=== PATIENT | female | born 1980 | race Two or more races ===

== ENCOUNTER 2018-05-31 11:57 | Outpatient (CLI) ==
--- NOTE | 2018-05-31 13:45 | CT ---
EXAM: CT of the head with and without contrast History: Headache. Technique: Multiplanar CT images through the head were obtained with and without the administration of IV contrast Findings: The visualized paranasal sinuses and mastoid air cells are clear in general. No acute jessie varial abnormalities. Intracranially the ventricular and cisternal spaces are normal in size, shape and configuration for a patient of this age. No dominant mass or midline shift. No hydrocephalous. No acute intracranial hemorrhage or abnormal extraaxial fluid collections. No contrast enhancing lesions. There is a prom inent asymmetric vessel seen extending superior and anterior to the proximal right MCA region. Impression: 1. No acute intracranial process and no abnormal contrast enhancing lesions. 2. 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 Recommend further evaluation with CTA of the head and neck.
== END 2018-05-31 11:58 | disposition home or self-care (01) ==
LOC: RAD 11:57
PROVIDERS: ATTEND Internal Medicine
DX: R42 Dizziness and giddiness (principal); R51 Headache; I10 Essential (primary) hypertension
CPT/HCPCS: 36415; 82565